=== PATIENT | female | born 1960 | race Caucasian/White ===

== ENCOUNTER 2016-10-24 12:25 | Emergency (ER) | payer MEDICARE, OTHER ==
[~2016-10-24] VITALS: Ht 152.4 cm; Wt 66.3 kg
[~2016-10-24 12:25] MED LIST: ALBU2.5I INH; CYMB60CA PO; DIAZ10 PO; LORTA10 PO; MUSCLE RELAXER; PERC10TA27 PO; ZITH250T PO
[2016-10-24 12:40] VITALS: BP 150/70; PULSE 64; RESP 16; TEMP 99.6; O2SAT 95
[2016-10-24 12:45] VITALS: O2SAT 95
[2016-10-24] MEDS ORDERED: SODIUM CHLORIDE 0.9% FLUSH 10 ML FLUSH IV FLUSH PRN (12:45)
[2016-10-24] MEDS ORDERED: CLON1 PO (12:56)
[2016-10-24] MEDS ORDERED: HYDR-3535 PO (12:56)
[2016-10-24] MEDS ORDERED: BUPR150XL PO (12:56)
[2016-10-24] MEDS ORDERED: TRAZ50TA12 PO (12:56)
[2016-10-24] MEDS ORDERED: CELE20TA PO (12:56)
[2016-10-24 13:13] LABS: AUTOMATED NEUTROPHIL # 3.8 TH/MM3 (1.8-7.7); BASOPHIL # 0.3 TH/MM3 (0-0.2); BASOPHIL % 4.5 % (0.0-2.0); EOSINOPHIL % 0.6 % (0.0-4.0); HEMATOCRIT 46.1 % (35.0-46.0); LYMPH % 21.5 % (9.0-44.0); LYMPHOCYTE # 1.2 TH/MM3 (1.0-4.8); MEAN CELL VOLUME 92.2 FL (80.0-100.0); MEAN CORPUSCULAR HEMOGLOBIN 31.6 PG (27.0-34.0); MEAN CORPUSCULAR HGB CONC 34.3 % (32.0-36.0); MONO % 5.4 % (0.0-8.0); PLATELET COUNT 57 TH/MM3 (150-450); RED BLOOD COUNT 5.01 MIL/MM3 (4.00-5.30); RED CELL DISTRIBUTION WIDTH 12.4 % (11.6-17.2); WHITE BLOOD COUNT 5.6 TH/MM3 (4.0-11.0)
[2016-10-24 13:14] LABS: HEMO FLAGS AUTO DIFF
[2016-10-24 13:23] LABS: POTASSIUM 3.8 MEQ/L (3.5-5.1)
[2016-10-24 13:26] LABS: BICARBONATE 25.6 MEQ/L (21.0-32.0)
[2016-10-24 13:46] LABS: SCAN/DIFF AUTO DIFF CONFIRMED
--- NOTE | 2016-10-24 13:50 | PD ---
HPI Chief Complaint: Syncope/Near-Syncope Time Seen by Provider: 12:36 Travel History International Travel<30 days: No Contact w/Intl Traveler<30days: No Traveled to known affect area: No History of Present Illness HPI The patient has not had a syncope event. The patient has a history of porphyria and occasionally undergoes therapeutic phlebotomy and is here with a prescription written by a global risk management director's [employer] SUPERVISOR stating to perform a therapeutic phlebotomy if the hemoglobin is greater than 10. Patient states her skin feels hot. She describes generalized fatigue and a generalized sensation of "just not feeling right." Until now she has been able to undergo therapeutic phlebotomies as needed with [facility] however recently that service was discontinued. Patient follows with Dr. Salazar of [facility]/onc. [facility] Past Medical History Bipolar Disorder: Yes Anxiety: Yes Depression: Yes Cancer: Yes (Leukemia ) Cardiovascular Problems: No Chemotherapy: Yes Diabetes: No Diminished Hearing: No Endocrine: No Gastrointestinal Disorders: No Genitourinary: No Hepatitis: No Hiatal Hernia: No Hypertension: No Immune Disorder: No Implanted Vascular Access Dvce: No Medical other: Yes (Porphyria ) Musculoskeletal: No Neurologic: Yes Psychiatric: Yes (BIPOLAR,DEPRESSION) Reproductive: No Respiratory: No Immunizations Current: Yes Seizures: Yes Thyroid Disease: No Tetanus Vaccination: < 5 Years Influenza Vaccination: Yes ?: Not Menopausal: Yes Tubal Ligation: Yes Past Surgical History Abdominal Surgery: Yes ("Tummy tuck") AICD: No Appendectomy: Yes (1971) Cardiac Surgery: No Section: Yes (X's 2) Ear Surgery: No Endocrine Surgery: No Eye Surgery: No Genitourinary Surgery: No Gynecologic Surgery: Yes (Ovary removed) Joint Replacement: No Neurologic Surgery: No Oral Surgery: No Pacemaker: No Thoracic Surgery: No Other Surgery: Yes (Carpal tunnel) Social History Alcohol Use: No Tobacco Use: Yes (1 PPD) Substance Use: No Allergies-Medications (Allergen,Severity, Reaction): Coded Allergies: Ibuprofen (Unverified Adverse Reaction, Severe, Bleeding, 01/04/16) "Affects platelet level" Reported Meds & Prescriptions Reported Meds & Active Scripts Active Reported Lortab (Hydrocodone-Acetaminophen) 10-325 Mg Tab 1 Tab PO Q6H PRN Trazodone (Trazodone HCl) 50 Mg Tab 50 Mg PO HS Celexa (Citalopram Hydrobromide) 20 Mg Tab 20 Mg PO BID Klonopin (Clonazepam) 1 Mg Tab 1 Mg PO BID PRN Wellbutrin Xl 24 HR (Bupropion HCl) 150 Mg Tab 150 Mg PO DAILY Review of Systems Except as stated in HPI: all other systems reviewed are Neg General / Constitutional: No: Fever Physical Exam Narrative GENERAL: 55-year-old female, pleasant well-nourished well-developed no acute distress SKIN: Warm and dry. HEAD: Atraumatic. Normocephalic. EYES: Pupils equal and round. No scleral icterus. No injection or drainage. ENT: No nasal bleeding or discharge. Mucous membranes pink and moist. NECK: Trachea midline. No JVD. CARDIOVASCULAR: Regular rate and rhythm. RESPIRATORY: No accessory muscle use. Clear to auscultation. Breath sounds equal bilaterally. GASTROINTESTINAL: Abdomen soft, non-tender, nondistended. Hepatic and splenic margins not palpable. MUSCULOSKELETAL: Extremities without clubbing, cyanosis, or edema. No obvious deformities. NEUROLOGICAL: Awake and alert. No obvious cranial nerve deficits. Motor grossly within normal limits. Five out of 5 muscle strength in the arms and legs. Normal speech. PSYCHIATRIC: Appropriate mood and affect; insight and judgment normal. Data Data Last Documented VS Vital Signs Date Time Temp Pulse Resp B/P Pulse Ox O2 Delivery O2 Flow Rate FiO2 10/24/16 14:05 50 16 102/57 96 Room Air 10/24/16 12:40 99.6 Vital signs reviewed Orders Basic Metabolic Panel (Bmp) (10/24/16 12:36) Complete Blood Count With Diff (10/24/16 12:36) Iv Access Insert/Monitor (10/24/16 12:36) Oximetry (10/24/16 12:36) Sodium Chloride 0.9% Flush (Ns Flush) (10/24/16 12:45) Labs Laboratory Tests Test 10/24/16 13:00 White Blood Count 5.6 TH/MM3 Red Blood Count 5.01 MIL/MM3 Hemoglobin 15.8 GM/DL Hematocrit 46.1 % Mean Corpuscular Volume 92.2 FL Mean Corpuscular Hemoglobin 31.6 PG Mean Corpuscular Hemoglobin 34.3 % Concent Red Cell Distribution Width 12.4 % Platelet Count 57 TH/MM3 Mean Platelet Volume 9.4 FL Neutrophils (%) (Auto) 68.0 % Lymphocytes (%) (Auto) 21.5 % Monocytes (%) (Auto) 5.4 % Eosinophils (%) (Auto) 0.6 % Basophils (%) (Auto) 4.5 % Neutrophils # (Auto) 3.8 TH/MM3 Lymphocytes # (Auto) 1.2 TH/MM3 Monocytes # (Auto) 0.3 TH/MM3 Eosinophils # (Auto) 0.0 TH/MM3 Basophils # (Auto) 0.3 TH/MM3 CBC Comment AUTO DIFF Differential Comment AUTO DIFF CONFIRMED Sodium Level 141 MEQ/L Potassium Level 3.8 MEQ/L Chloride Level 108 MEQ/L Carbon Dioxide Level 25.6 MEQ/L Anion Gap 7 MEQ/L Blood Urea Nitrogen 10 MG/DL Creatinine 0.81 MG/DL Estimat Glomerular Filtration 73 ML/MIN Rate Random Glucose 98 MG/DL Calcium Level 8.8 MG/DL MDM Medical Decision Making Medical Screen Exam Complete: Yes Emergency Medical Condition: Yes Medical Record Reviewed: Yes Differential Diagnosis Polycythemia, porphyria, anemia, thrombocytopenia, electrolyte imbalance, renal insufficiency Narrative Course CBC & BMP Diagram 10/24/16 13:00 The patient's case was discussed with Dr Salazar who knows the patient well. Evidently she has been unable to undergo therapeutic phlebotomies a the [facility] due to thrombocytopenia, which has replaced the [facility] therapeutic phlebotomy service. Therapeutic phlebotomy cannot be performed in the ED; the patient has no indication for admission at this point. Follow-up with Dr. Salazar is advised. Patient verbalized understanding. Diagnosis Primary Impression: Weakness Additional Impression: Porphyria Qualified Code: E80.20 - Porphyria, unspecified porphyria type Referrals: Enma Salazar MD 1 day Additional Instructions: PLEASE ATTEND THE [facility] FOR THERAPEUTIC PHLEBOTOMY, WHICH OCCURS ON TUESDAYS IN [facility]. PLEASE CALL DR SALAZAR'S OFFICE FOR ADDITIONAL INFORMATION REGARDING THE [facility] IF NECESSARY. Med/Other Pt SpecificInfo: No Change to Meds Disposition: 01 DISCHARGE HOME Condition: Stable Jose Alfredo Godinez MD Oct 24, 2016 13:50
[2016-10-24 14:05] VITALS: BP 102/57; PULSE 50; RESP 16; O2SAT 96
== END 2016-10-24 14:05 | disposition home or self-care (01) ==
LOC: PHED 12:25
DX: R53.1 Weakness (principal); E80.20 Unspecified porphyria; F17.200 Nicotine dependence, unspecified, uncomplicated
CPT/HCPCS: 80048; 85025; 99283

== ENCOUNTER 2016-12-07 23:17 | Emergency (ER) | payer MEDICARE, OTHER ==
[~2016-12-07] VITALS: Ht 152.4 cm; Wt 71.7 kg
[~2016-12-07 23:17] MED LIST changes: -ALBU2.5I INH; +BUPR150XL PO; +CELE20TA PO; +CLON1 PO; -CYMB60CA PO; -DIAZ10 PO; +HYDR-3535 PO; -LORTA10 PO; -MUSCLE RELAXER; -PERC10TA27 PO; +TRAZ50TA12 PO; -ZITH250T PO
[2016-12-07 23:23] VITALS: BP 168/80; PULSE 77; RESP 18; TEMP 99.3; O2SAT 97
[2016-12-08] MEDS ORDERED: DIAZ10 PO (00:19)
[2016-12-08] MEDS ORDERED: DEXT1LIQ15 PO (00:19)
--- NOTE | 2016-12-08 00:36 | PD ---
HPI Chief Complaint: Cold / Flu Symptoms Time Seen by Provider: 00:27 Travel History International Travel<30 days: No Contact w/Intl Traveler<30days: No Traveled to known affect area: No History of Present Illness HPI The patient is a 56-year-old female that has had a cough productive of yellow sputum for 10 days. She also has a sore throat and occasional earache on the right. She says that she has some tenderness in the lymph nodes along the anterior cervical chain. The patient has had chemotherapy for leukemia and has lower resistance to pneumonias. She also is a pack-a-day smoker. She continues to smoke during this illness, she says she cut back to 2 cigarettes daily. She is not really short of breath. She has been wheezing. She has a nebulizer machine at home but has never used it during this illness. She has a primary care physician but did not call him during this illness. PFSH Past Medical History Bipolar Disorder: Yes Anxiety: Yes Depression: Yes Cancer: Yes (Leukemia ) Cardiovascular Problems: No Chemotherapy: Yes Diabetes: No Diminished Hearing: No Endocrine: No Gastrointestinal Disorders: No Genitourinary: No Hepatitis: No Hiatal Hernia: No Hypertension: No Immune Disorder: No Implanted Vascular Access Dvce: No Musculoskeletal: No Neurologic: Yes Psychiatric: Yes (BIPOLAR,DEPRESSION) Reproductive: No Respiratory: No Immunizations Current: Yes Seizures: Yes Thyroid Disease: No Tetanus Vaccination: < 5 Years Influenza Vaccination: Yes ?: Not Menopausal: Yes Tubal Ligation: Yes Past Surgical History Abdominal Surgery: Yes ("Tummy tuck") AICD: No Appendectomy: Yes (1971) Cardiac Surgery: No Section: Yes (X's 2) Ear Surgery: No Endocrine Surgery: No Eye Surgery: No Genitourinary Surgery: No Gynecologic Surgery: Yes (Ovary removed) Joint Replacement: No Neurologic Surgery: No Oral Surgery: No Pacemaker: No Thoracic Surgery: No Other Surgery: Yes (Carpal tunnel) Social History Alcohol Use: No Tobacco Use: Yes (1 PPD) Substance Use: No Allergies-Medications (Allergen,Severity, Reaction): Coded Allergies: ibuprofen (Verified Adverse Reaction, Severe, Bleeding, 12/08/16) "Affects platelet level" Reported Meds & Prescriptions Reported Meds & Active Scripts Active Prednisone 50 Mg Tab 50 Mg PO BID Zithromax (Azithromycin) 500 Mg Tab 500 Mg PO DAILY 5 Days Reported Valium (Diazepam) 10 Mg Tab 10 Mg PO HS PRN Delsym Cough Chest Congestion (Dextromethorphan-Guaifenesin Liq) 5-100 Mg/5 Ml Liq 20 Ml PO Q4H PRN Lortab (Hydrocodone-Acetaminophen) 10-325 Mg Tab 1 Tab PO Q6H PRN Trazodone (Trazodone HCl) 50 Mg Tab 50 Mg PO HS Celexa (Citalopram Hydrobromide) 20 Mg Tab 20 Mg PO BID Review of Systems Except as stated in HPI: all other systems reviewed are Neg Physical Exam Narrative GENERAL: The patient is alert, oriented 3 in no respiratory distress. Her vital signs show temperature 99.3 with blood pressure 168/80 but otherwise normal. SKIN: Focused skin assessment warm/dry. HEAD: Atraumatic. Normocephalic. EYES: Pupils equal and round. No scleral icterus. No injection or drainage. ENT: No nasal bleeding or discharge. Mucous membranes pink and moist. The throat is clear with minimal erythema and no exudate and no abscess. NECK: Trachea midline. No JVD. There are some tender nodes along the anterior cervical chain but no enlargement nodes are present. There is no meningismus. CARDIOVASCULAR: Regular rate and rhythm. No murmur appreciated. RESPIRATORY: No accessory muscle use. A few scattered wheezes are heard on auscultation. Breath sounds equal bilaterally. GASTROINTESTINAL: Abdomen soft, non-tender, nondistended. Hepatic and splenic margins not palpable. MUSCULOSKELETAL: No obvious deformities. No clubbing. No cyanosis. No edema. NEUROLOGICAL: Awake and alert. No obvious cranial nerve deficits. Motor grossly within normal limits. Normal speech. PSYCHIATRIC: Appropriate mood and affect; insight and judgment normal. Data Data Last Documented VS Vital Signs Date Time Temp Pulse Resp B/P (MAP) Pulse Ox O2 Delivery O2 Flow Rate FiO2 12/08/16 01:14 67 18 117/64 (81) 98 Room Air 12/07/16 23:23 99.3 Orders Orders Complete Blood Count With Diff (12/08/16 00:37) Comprehensive Metabolic Panel (12/08/16 00:37) B-Type Natriuretic Peptide (12/08/16 00:37) Troponin I (12/08/16 00:37) Urinalysis - C+S If Indicated (12/08/16 00:37) Influenzae A/B Antigen (12/08/16 00:37) Iv Access Insert/Monitor (12/08/16 00:37) Ecg Monitoring (12/08/16 00:37) Oximetry (12/08/16 00:37) Oxygen Administration (12/08/16 00:37) Chest, Pa & Lat (12/08/16 00:37) Sodium Chloride 0.9% Flush (Ns Flush) (12/08/16 00:45) Albuterol-Ipratropium Neb (Duoneb Neb) (12/08/16 00:45) Methylprednisolone So Succ Inj (Solumedr (12/08/16 02:00) Azithromycin (Zithromax) (12/08/16 02:00) Labs Laboratory Tests Test 12/08/16 00:59 12/08/16 01:11 White Blood Count 6.4 TH/MM3 Red Blood Count 4.21 MIL/MM3 Hemoglobin 13.4 GM/DL Hematocrit 38.8 % Mean Corpuscular Volume 92.2 FL Mean Corpuscular Hemoglobin 31.9 PG Mean Corpuscular Hemoglobin Concent 34.6 % Red Cell Distribution Width 11.9 % Platelet Count 102 TH/MM3 Mean Platelet Volume 8.5 FL Neutrophils (%) (Auto) 58.9 % Lymphocytes (%) (Auto) 31.8 % Monocytes (%) (Auto) 6.5 % Eosinophils (%) (Auto) 1.8 % Basophils (%) (Auto) 1.0 % Neutrophils # (Auto) 3.8 TH/MM3 Lymphocytes # (Auto) 2.0 TH/MM3 Monocytes # (Auto) 0.4 TH/MM3 Eosinophils # (Auto) 0.1 TH/MM3 Basophils # (Auto) 0.1 TH/MM3 CBC Comment DIFF FINAL Differential Comment Blood Urea Nitrogen 14 MG/DL Creatinine 0.84 MG/DL Random Glucose 82 MG/DL Total Protein 6.2 GM/DL Albumin 3.3 GM/DL Calcium Level 9.0 MG/DL Alkaline Phosphatase 83 U/L Aspartate Amino Transf (AST/SGOT) 17 U/L Alanine Aminotransferase (ALT/SGPT) 20 U/L Total Bilirubin 0.2 MG/DL Sodium Level 140 MEQ/L Potassium Level 3.8 MEQ/L Chloride Level 105 MEQ/L Carbon Dioxide Level 28.4 MEQ/L Anion Gap 7 MEQ/L Estimat Glomerular Filtration Rate 70 ML/MIN Troponin I LESS THAN 0.02 NG/ML B-Type Natriuretic Peptide 48 PG/ML Urine Color YELLOW Urine Turbidity CLEAR Urine pH 6.0 Urine Specific [place] 1.020 Urine Protein NEG mg/dL Urine Glucose (UA) NEG mg/dL Urine Ketones NEG mg/dL Urine Occult Blood TRACE Urine Nitrite NEG Urine Bilirubin NEG Urine Leukocyte Esterase NEG Urine RBC 3-5 /hpf Urine WBC 0-2 /hpf Urine Squamous Epithelial Cells 0-5 /hpf Urine Bacteria NONE /hpf Microscopic Urinalysis Comment CULT NOT INDICATED MDM Medical Decision Making Medical Screen Exam Complete: Yes Emergency Medical Condition: Yes Medical Record Reviewed: Yes Interpretation(s) The chest x-ray shows no acute change. Differential Diagnosis COPD with acute exacerbation, pneumonia, bronchitis, hypoxemia Narrative Course The patient got some good relief with the DuoNeb. She will be given a tapered course of prednisone as well as Zithromax. She needs to quit smoking. She should follow-up with a primary care physician. Diagnosis Primary Impression: Bronchitis with bronchospasm Additional Instructions: As we discussed, quit smoking and follow-up with her primary care physician. The prednisone is one tablet twice daily for 4 days followed by one tablet once daily for 4 days. Zithromax is one tablet daily for 5 days. Scripts Prednisone (Prednisone) 50 Mg Tab 50 MG PO BID for X 4 days than daily X 4 days, #12 TAB 0 Refills Prov: Tc Kolb MD 12/08/16 Azithromycin (Zithromax) 500 Mg Tab 500 MG PO DAILY for Infection for 5 Days, #5 TAB 0 Refills Prov: Tc Kolb MD 12/08/16 Disposition: 01 DISCHARGE HOME Condition: Stable Tc Kolb MD Dec 08, 2016 00:36
[2016-12-08] MEDS ORDERED: SODIUM CHLORIDE 0.9% FLUSH 10 ML FLUSH IVF PRN (00:45)
[2016-12-08] MEDS: RESP: ALBUTEROL 2.5 MG/IPRATROPIUM 0.5 MG NEB (SCH) INH ×2 (00:45→00:46)
[2016-12-08 01:04] LABS: AUTOMATED NEUTROPHIL # 3.8 TH/MM3 (1.8-7.7); BASOPHIL # 0.1 TH/MM3 (0-0.2); EOSINOPHIL # 0.1 TH/MM3 (0-0.4); EOSINOPHIL % 1.8 % (0.0-4.0); HEMATOCRIT 38.8 % (35.0-46.0); HEMO FLAGS DIFF FINAL; LYMPH % 31.8 % (9.0-44.0); MEAN CELL VOLUME 92.2 FL (80.0-100.0); MEAN CORPUSCULAR HEMOGLOBIN 31.9 PG (27.0-34.0); MEAN CORPUSCULAR HGB CONC 34.6 % (32.0-36.0); MONO % 6.5 % (0.0-8.0); NEUT % 58.9 % (16.0-70.0); PLATELET COUNT 102 TH/MM3 (150-450); RED BLOOD COUNT 4.21 MIL/MM3 (4.00-5.30); RED CELL DISTRIBUTION WIDTH 11.9 % (11.6-17.2); WHITE BLOOD COUNT 6.4 TH/MM3 (4.0-11.0)
[2016-12-08 01:12] LABS: CHLORIDE 105 MEQ/L (98-107); POTASSIUM 3.8 MEQ/L (3.5-5.1); SODIUM (NA) 140 MEQ/L (136-145)
[2016-12-08 01:14] VITALS: BP 117/64; PULSE 67; RESP 18; O2SAT 98
[2016-12-08 01:16] LABS: ANION GAP 7 MEQ/L (5-15); BICARBONATE 28.4 MEQ/L (21.0-32.0); BLOOD UREA NITROGEN 14 MG/DL (7-18)
[2016-12-08 01:19] LABS: ALT (GPT) 20 U/L (10-53); AST (GOT) 17 U/L (15-37); GLOMERULAR FILTRATION RATE 70 ML/MIN (>89)
[2016-12-08 01:19] LABS: GLUCOSE,URINE NEG (NEG); KETONE, URINE NEG (NEG); NITRITE,URINE NEG (NEG)
[2016-12-08 01:21] LABS: TOTAL BILIRUBIN ADULT 0.2 MG/DL (0.2-1.0)
[2016-12-08 01:22] LABS: BLOOD, URINE TRACE (NEG); URINE COLOR YELLOW (YELLW/STRAW)
[2016-12-08 01:22] LABS: ALKALINE PHOSPHATASE 83 U/L (45-117)
[2016-12-08 01:24] LABS: COMMENT (UR) CULT NOT INDICATED; CULTURE IF INDICATED CULT NOT INDICATED; SQUAMOUS EPITHELIAL CELL URINE 0-5 /hpf (0-5); WBC, URINE 0-2 /hpf (0-5)
[2016-12-08] MEDS ORDERED: ZITH500T PO (01:54)
[2016-12-08] MEDS ORDERED: PRED50 PO (01:54)
--- NOTE | 2016-12-08 01:57 | RADRPT ---
EXAM DATE/TIME: 12/08/2016 01:16 [place] COMPARISON: CHEST PA & LAT, November 03, 2015, 14:32. INDICATIONS : Cough for 10 days MEDICAL HISTORY : Asthma SURGICAL HISTORY : None. ENCOUNTER: Initial ACUITY: 1 week PAIN SCORE: 5/10 LOCATION: Bilateral chest FINDINGS: PA and lateral views of the chest demonstrate the lungs to be symmetrically aerated without evidence of mass, infiltrate or effusion. The cardiomediastinal contours are unremarkable. Osseous structure s are intact. CONCLUSION: No acute disease. No significant change has occurred. Reji Nuno MD on December 08, 2016 at 1:54 Board Certified Radiologist. This report was verified electronically.
[2016-12-08] MEDS ORDERED: methylPREDNISolone SOD SUCC 125 MG/2 ML VIAL IV PUSH ONE (02:00)
[2016-12-08] MEDS ORDERED: AZITHROMYCIN 250 MG TAB PO ONE (02:00)
[2016-12-08] MEDS ORDERED: ACETAMINOPHEN 500 MG CPLT PO ONE (02:15)
[2016-12-08 02:27] VITALS: BP 117/68; PULSE 69; RESP 16; O2SAT 96
== END 2016-12-08 02:41 | disposition home or self-care (01) ==
LOC: PHED 23:17
DX: J40 Bronchitis, not specified as acute or chronic (principal); C95.90 Leukemia, unspecified not having achieved remission; F17.210 Nicotine dependence, cigarettes, uncomplicated; Z92.21 Personal history of antineoplastic chemotherapy; R06.2 Wheezing
CPT/HCPCS: 71020; 80053; 81001; 83880; 84484; 85025; 87804; 94640; 94664; 96374; 99284; J2930